=== PATIENT | male | born 1965 | race African-American/Black ===

== ENCOUNTER 2016-12-10 16:53 | Emergency (ER) | payer BC ==
[~2016-12-10 16:53] MED LIST: ALBUTEROL17 G1 IH; ALBUTEROL17 GM INH; ASPIRIN81 M1 PO; ATENOLOL PO; ATENOLOL50 MG PO; FIORICET W/CODE1 CAP PO; KEFLEX500 MG PO; LISINOPRIL10 MG PO; MEDROL DOSEPAK4 MG PO; NAPROXEN PO; ORUDIS75 M1 PO; UNKNOWN BP MED
== END 2016-12-10 17:08 | disposition home or self-care (01) ==
LOC: CFTX 16:53
DX: S39.012A Strain of muscle, fascia and tendon of lower back, initial encounter (principal); I10 Essential (primary) hypertension; J45.909 Unspecified asthma, uncomplicated; X50.0XXA Overexertion from strenuous movement or load, initial encounter
CPT/HCPCS: 99283